=== PATIENT | female | born 1990 | race African-American/Black ===

== ENCOUNTER 2019-10-17 10:19 | Emergency (ER) | payer OTHER ==
[2019-10-17 17:09] LABS: SARS-CoV-2 MS2 Positive; SARS-CoV-2 N Gene Negative; SARS-CoV-2 S Gene Negative; SARS-CoV-2 by NAA Not Detected (NotDetected); SARS-CoV-2 orf1ab Negative
== END 2019-10-17 10:40 | disposition home or self-care (01) ==
LOC: ERS 10:19
DX: Z20.828 Contact with and (suspected) exposure to other viral communicable diseases (principal); F17.210 Nicotine dependence, cigarettes, uncomplicated
CPT/HCPCS: 87635; 99283; U0003

== ENCOUNTER 2020-02-26 16:44 | Emergency (ER) | payer OTHER, SELFPAY ==
[2020-02-26] MEDS ORDERED: Albuterol Sulfate 1.25 MG/3 ML NEB ONE (17:31)
[2020-02-26] MEDS ORDERED: Albuterol 200 PUFF (6.7GM INHALER) ONE (17:32)
--- NOTE | 2020-02-26 18:08 | RAD ---
Portable frontal chest radiograph: 02/26/2020 COMPARISON: None HISTORY: Wheezing, cough FINDINGS: No pneumothorax or pleural fluid. No focal consolidation or alveolar edema. Heart and media stinal contours are grossly unremarkable. Minimal hazy groundglass opacity noted in the left lung base just lateral to the left heart border. IMPRESSION: Mild hazy groundglass density in the left lung base suspicious for nonspecific infectious pneumonitis. This could signify Covid pneumonia in the proper clinical setting.
[2020-02-27 01:40] LABS: SARS-CoV-2 MS2 Positive; SARS-CoV-2 N Gene Negative; SARS-CoV-2 S Gene Negative; SARS-CoV-2 by NAA Not Detected (NotDetected); SARS-CoV-2 orf1ab Negative
== END 2020-02-26 19:20 | disposition home or self-care (01) ==
LOC: ERS 16:44
DX: J45.901 Unspecified asthma with (acute) exacerbation (principal); J18.9 Pneumonia, unspecified organism; Z20.822 Contact with and (suspected) exposure to COVID-19; F17.210 Nicotine dependence, cigarettes, uncomplicated
CPT/HCPCS: 71045; 87635; U0003; U0005